=== PATIENT | male | born 1985 | race Caucasian/White ===

== ENCOUNTER 2017-01-23 17:21 | Emergency (ER) | payer SELFPAY ==
[2017-01-23 17:25] VITALS: BP 146/87; PULSE 95; TEMP 100.3; BMI 25.8
[2017-01-23] MEDS ORDERED: IBUPROFEN 400 MG TABLET (FP) PO ONE ×2 (17:55→18:37)
[2017-01-23] MEDS ORDERED: DEXAMETHASONE SOD PHOSPHATE 10 MG/1 ML VIAL IM ONE (18:37)
--- NOTE | 2017-01-23 18:37 | PDOC ---
History of Present Illness - General Chief Complaint: Sore Throat Stated Complaint: COLD SYMPTOMS Time Seen by Provider: 01/23/17 17:41 History Source: Patient - History of Present Illness Timing/Duration: reports: yesterday Severity: reports: moderate Associated Symptoms: reports: earache, sore throat. denies: cough, facial pain , fever/chills, headache, nasal congestion, nasal drainage Past History - Past Medical History Allergies/Adverse Reactions: Allergies Allergy/AdvReac Type Severity Reaction Status Date / Time No Known Allergies Allergy Verified 01/23/17 17:25 Home Medications: Ambulatory Orders Ibuprofen [Motrin -] 800 mg PO Q6H #30 tablet 01/23/17 Suicide Attempt (Hx): No Other medical history: PATIENT DENIES MEDICAL HISTORY - Psycho/Social/Smoking Cessation Hx Anxiety: No Suicidal Ideation: No Smoking History: Never smoked Have you smoked in the past 12 months: No Hx Alcohol Use: Yes (OCCASIONALLY) Drug/Substance Use Hx: No Substance Use Type: None Review of Systems - Review of Systems Constitutional: Yes: Chills, Fever HEENTM: Yes: Ear Pain, Throat Pain Respiratory: No: Cough *Physical Exam - Vital Signs Last Vital Signs Temp Pulse Resp BP Pulse Ox 100.3 F H 95 H 18 146/87 97 01/23/17 17:23 01/23/17 17:23 01/23/17 17:23 01/23/17 17:23 01/23/17 17:23 - Physical Exam General Appearance: Yes: Appropriately Dressed. No: Apparent Distress HEENT: positive: Normal Voice, Tonsillar Exudate (w/ enlargement, no uvular deviation) Neck: positive: Supple. negative: Lymphadenopathy (R), Lymphadenopathy (L) Respiratory/Chest: negative: Respiratory Distress Integumentary: positive: Dry, Warm Neurologic: positive: Fully Oriented, Alert, Normal Mood/Affect Medical Decision Making - Medical Decision Making 01/23/17 18:35 31 yo M, no sig hx, here w/ sore throat with dysphagia and right ear pain and fever since yesterday. No cough, rhinorrhea or bodyaches. No sick contacts. No tob use See exam Pharyngitis ?viral, r/o strep -pain meds -rapid strep 01/23/17 18:37 01/23/17 18:57 Strep +. Pt opted for bicillin. Dc w/ pain meds. *DC/Admit/Observation/Transfer Diagnosis at time of Disposition: Strep pharyngitis - Discharge Dispostion Disposition: HOME Condition at time of disposition: Improved - Prescriptions Prescriptions: Ibuprofen [Motrin -] 800 mg PO Q6H #30 tablet - Patient Instructions Printed Discharge Instructions: Strep Throat Additional Instructions: Usted tiene flakito infeccin de garganta llamada estreptococo. Se le administr flakito inyeccin de penicilina, que es todo lo que necesita para tratar carlos infecci n. [place] 800mg motrin cada 6 horas para el dolor. Motrin fue enviado a carlos farmacia. Joaquina sntomas tomarn tiempo para mejorar. Regreso a ED por empeoramiento de los sntomas Print Language: CHINESE
[2017-01-23] MEDS ORDERED: DEXAMETHASONE 4 MG TABLET (FP) ONE (18:47)
[2017-01-23] MEDS ORDERED: PENICILLIN G BENZATHINE 1,200,000 UNIT/2 ML PFS IM ONE (18:54)
[2017-01-23] MEDS ORDERED: PENICILLIN G BENZATHINE 2,400,000 UNIT/4 ML PFS ONE (19:07)
== END 2017-01-23 18:45 | disposition home or self-care (01) ==
LOC: JERFT 17:21
PROC: 3E023GC Introduction of Other Therapeutic Substance into Muscle, Percutaneous Approach (ICD-10-PCS; principal; 2017-01-23)
PROC: 3E02329 Introduction of Other Anti-infective into Muscle, Percutaneous Approach (ICD-10-PCS; 2017-01-23)
DX: J02.0 Streptococcal pharyngitis (principal)
CPT/HCPCS: 87070; 87430; 99281-25

== ENCOUNTER 2017-01-25 04:03 | Inpatient (IN) | payer OTHER ==
--- NOTE | 2017-01-25 04:29 | PDOC ---
History of Present Illness - General History Source: Patient Exam Limitations: No Limitations - History of Present Illness Initial Comments: 01/25/17 04:38 The patient is a 31 year old male with no significant past medical history who presents to the ED for worsening sore throat, hoarse voice, and trismus. Patient was seen 2 days ago for sore throat and found to have a positive strep. Patient was treated with a bicillin injection. He returns today because his sore throat has worsen. States he can somewhat tolerate his secretion. The patient denies fever, chills, cough, SOB, chest pain, and palpitations. The patient denies abdominal pain, nausea, vomiting, and diarrhea. Allergies: NKDA Social History: No alcohol, tobacco, or drug use reported. Past Surgical History: None reported PCP: None reported <Lalita Valdes - Last Filed: 01/25/17 04:38> - General History Source: Patient <ZenKirby mills - Last Filed: 01/25/17 19:32> - General Chief Complaint: Pain Stated Complaint: THROAT PAIN Time Seen by Provider: 01/25/17 04:29 Past History <Lalita Valdes - Last Filed: 01/25/17 04:38> - Past Medical History Suicide Attempt (Hx): No Other medical history: strep (+) - Psycho/Social/Smoking Cessation Hx Anxiety: No Suicidal Ideation: No Smoking History: Never smoked Have you smoked in the past 12 months: No Hx Alcohol Use: Yes (OCCASIONALLY) Drug/Substance Use Hx: No Substance Use Type: None <Kirby Orosco - Last Filed: 01/25/17 19:32> - Past Medical History Allergies/Adverse Reactions: Allergies Allergy/AdvReac Type Severity Reaction Status Date / Time No Known Allergies Allergy Verified 01/23/17 17:25 Home Medications: Ambulatory Orders NK [No Known Home Medication] 01/25/17 Review of Systems - Review of Systems Able to Perform ROS?: Yes Comments:: 01/25/17 04:38 CONSTITUTIONAL: Absent: fever, no chills, no fatigue EYES: Absent: visual changes ENT: +sore throat, trismus, hoarse voice Absent: ear pain CARDIOVASCULAR: Absent: chest pain, no palpitations RESPIRATORY: Absent: cough, no SOB GI: Absent: abdominal pain, no nausea, no vomiting, no constipation, no diarrhea GENITOURINARY: Absent: dysuria, no frequency, no hematuria MUSCULOSKELETAL: Absent: back pain, no arthralgia, no myalgia SKIN: Absent: rash NEURO: Absent: headache <Lalita Valdes - Last Filed: 01/25/17 04:38> *Physical Exam - Vital Signs Last Vital Signs Temp Pulse Resp BP Pulse Ox 100.5 F H 105 H 16 130/85 100 01/25/17 04:17 01/25/17 04:17 01/25/17 04:17 01/25/17 04:17 01/25/17 04:17 - Physical Exam Comments: 01/25/17 04:39 GENERAL: Well-appearing, well-nourished. No apparent distress. HEENT: Normocephalic, atraumatic. PERRL, EOM intact. Hoarse voice. Enlargement of the posterior pharynx, injected, no exudates CARDIOVASCULAR: Normal S1, S2. Regular rate and rhythm. PULMONARY: Clear to auscultation bilaterally. ABDOMEN: Soft, non-distended, non-tender. EXTREMITIES: Normal ROM in all four extremities. No gross deformities. SKIN: Warm, dry. No rash NEUROLOGICAL: No focal neurological deficits. <Lalita Valdes - Last Filed: 01/25/17 04:38> - Vital Signs Last Vital Signs Temp Pulse Resp BP Pulse Ox 100.5 F H 105 H 16 130/85 100 01/25/17 04:17 01/25/17 04:17 01/25/17 04:17 01/25/17 04:17 01/25/17 04:17 <Kirby Orosco - Last Filed: 01/25/17 19:32> ED Treatment Course - LABORATORY CBC & Chemistry Diagram: 01/25/17 05:14 01/25/17 05:14 <Kirby Orosco - Last Filed: 01/25/17 19:32> Medical Decision Making - Medical Decision Making 01/25/17 19:32 Dr. Orosco: The scribe's documentation has been prepared under my direction and personally reviewed by me in its entirery. I confirm that the note above accurately reflects all work, treatment, procedures, and medical decision making performed by me. <Kirby Orosco - Last Filed: 01/25/17 19:32> *DC/Admit/Observation/Transfer - Attestations Scribe Attestion: 01/25/17 04:39 Documentation prepared by Lalita Valdes, acting as medical laboratory technicians for Kirby Orosco MD/. <Lalita Valdes - Last Filed: 01/25/17 04:38> <Kirby Orosco - Last Filed: 01/25/17 19:32> Diagnosis at time of Disposition: Tonsillar abscess - Discharge Dispostion Condition at time of disposition: Stable
[2017-01-25] MEDS ORDERED: AMPICILLIN NA/SULBACTAM NA 3 GM in SODIUM CHLORIDE 100 ML IVPB ONE (04:30)
[2017-01-25] MEDS ORDERED: SODIUM CHLORIDE 1,000 ML IV STA (04:30)
[2017-01-25] MEDS ORDERED: KETOROLAC TROMETHAMINE 30 MG/1 ML VIAL IVPUSH ONE (04:31)
[2017-01-25] MEDS ORDERED: methylPREDNISolone NA SUCC 125 MG/2 ML VIAL IVPB ONE (04:31)
[2017-01-25] MEDS ORDERED: methylPREDNISolone NA SUCC 125 MG/2 ML VIAL ONE (05:06)
[2017-01-25] MEDS ORDERED: KETOROLAC TROMETHAMINE 30 MG/1 ML VIAL ONE (05:06)
[2017-01-25 05:53] LABS: MCH 29.4 pg (25.7-33.7)
[2017-01-25 06:00] LABS: BASOPHIL 0.2 % (0-2.0); EOSINOPHIL 0.1 % (0-4.5); MCHC 33.3 g/dl (32.0-35.9); MEAN CELL VOLUME 88.3 fl (80-96); NEUTROPHILS 75.2 % (42.8-82.8); PLATELET COUNT 248 K/MM3 (134-434); RDW 14.1 % (11.9-15.9); WHITE BLOOD COUNT 15.5 K/mm3 (4.0-10.0)
[2017-01-25 06:07] LABS: INR 1.14 (0.82-1.09); PROTHROMBIN TIME (PATIENT) 12.6 SEC (9.98-11.88)
[2017-01-25 06:17] LABS: ALBUMIN 3.5 g/dl (3.4-5.0); ALK PHOS 84 U/L (45-117); ANION GAP 8 (8-16); BILIRUBIN,TOTAL 0.4 mg/dL (0.2-1.0); CALCIUM 8.7 mg/dL (8.5-10.1); CO2 28 mmol/L (21-32); COCKROFT - GAULT 179.81; CREATININE 0.7 mg/dL (0.7-1.3); GLUCOSE,RANDOM 115 mg/dL (74-106); SGOT/AST 23 U/L (15-37); SGPT/ALT 45 U/L (12-78); TOT PROT 7.1 g/dl (6.4-8.2)
--- NOTE | 2017-01-25 08:50 | PDOC ---
*Physical Exam - Vital Signs Last Vital Signs Temp Pulse Resp BP Pulse Ox 98.3 F 80 18 115/80 96 01/25/17 07:35 01/25/17 07:35 01/25/17 07:35 01/25/17 07:35 01/25/17 07:35 ED Treatment Course - LABORATORY CBC & Chemistry Diagram: 01/25/17 05:14 01/25/17 05:14 - ADDITIONAL ORDERS Additional order review: Laboratory Results 01/25/17 01/25/17 01/25/17 05:14 05:14 05:14 INR 1.14 Sodium 140 Potassium 3.7 Chloride 104 Carbon Dioxide 28 D Anion Gap 8 BUN 16 D Creatinine 0.7 D Creat Clearance w eGFR > 60 Random Glucose 115 H D Calcium 8.7 Total Bilirubin 0.4 AST 23 ALT 45 Alkaline Phosphatase 84 Total Protein 7.1 Albumin 3.5 Blood Type O POSITIVE Antibody Screen Negative 01/25/17 05:14 RBC 4.65 MCV 88.3 MCHC 33.3 RDW 14.1 MPV 8.0 Neutrophils % 75.2 Lymphocytes % 14.5 D Monocytes % 10.0 D Eosinophils % 0.1 D Basophils % 0.2 D - Medications Given in the ED: ED Medications Discontinued Medications Generic Name Dose Route Start Last Admin Trade Name Freq PRN Reason Stop Dose Admin Sodium Chloride 1,000 mls @ 1,000 mls/hr 01/25/17 04:30 01/25/17 05:24 Normal Saline - IV 01/25/17 05:29 1,000 mls/hr ASDIR STA Administration Ampicillin Sodium/Sulbactam 100 mls @ 200 mls/hr 01/25/17 04:30 01/25/17 05:43 Sodium 3 gm/ Sodium Chloride IVPB 01/25/17 04:59 200 mls/hr ONCE ONE Administration Ketorolac Tromethamine 30 mg 01/25/17 04:31 01/25/17 05:23 Toradol Injection - IVPUSH 01/25/17 04:32 30 mg ONCE ONE Administration Methylprednisolone Sodium Succinate 125 mg 01/25/17 04:31 01/25/17 05:23 Solu-Medrol - IVPB 01/25/17 04:32 125 mg ONCE ONE Administration Medical Decision Making - Medical Decision Making 01/25/17 08:18 Pt signed out to me from Dr. Palma. 31y M hx of recent strep disagnosis 2 days ago , s/p bicillin presents to the ED with worsening sore throat, subjective fever and R ear pain, inability to eat /sweallow. The pt is pending a CT of the neck to r/o abscess. on my reassessment the pt appears in no distress but unable to open his mouth in the way to visualize, but he is protecting his airway secretions. 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 pt given zosyn will admit for furhter management and will notify dr. Carpio regarding admission for service admission 01/25/17 09:[address] Oliva will admit to med surg for further management of BENEFITS CONSULTING ANALYST 01/25/17 09:30 case jayde hurst agreed with admission for further management 01/25/17 12:[address] Buchanan (ENT) unable to drain any pus, but pt states after the CT, he spit up alot of pus, suspect it may have spontaneously drained. dr. buchanan recommends clinamycin. *DC/Admit/Observation/Transfer Diagnosis at time of Disposition: Tonsillar abscess - Discharge Dispostion Condition at time of disposition: Stable Admit: Yes
[2017-01-25 11:48] VITALS: BMI 25.8
[2017-01-25] MEDS ORDERED: CLINDAMYCIN 600MG PREMIX IVPB 50 ML IVPB ONE ×2 (12:23→12:38)
[2017-01-25] MEDS: SODIUM CHLORIDE 1,000 ML IV SCH ×2 (12:34→16:40)
--- NOTE | 2017-01-25 12:43 | CON.ENT ---
Consult Consult Specialty:: ENT Referred by:: ALEX Reason for Consultation:: BULK FILLER on CT scan - History of Present Illness Chief Complaint: throat pain History of Present Illness: 2 days of increasing sore throat had CT c/w right BULK FILLER. He notes that after CT he spit out a lot of PUS. - History Source History Provided By: Patient, Medical Record Limitations to Obtaining History: No Limitations - Past Surgical History Past Surgical History: Yes: None - Alcohol/Substance Use Hx Alcohol Use: No History of Substance Use: reports: None - Smoking History Smoking history: Never smoked Have you smoked in the past 12 months: No - Social History ADL: Independent History of Recent Travel: No Home Medications - Allergies Allergies/Adverse Reactions: Allergies Allergy/AdvReac Type Severity Reaction Status Date / Time No Known Allergies Allergy Verified 01/23/17 17:25 - Home Medications Home Medications: Ambulatory Orders NK [No Known Home Medication] 01/25/17 Physical Exam-ENT Vital Signs: Vital Signs Temperature 98 F 01/25/17 11:23 Pulse Rate 79 01/25/17 11:23 Respiratory Rate 18 01/25/17 11:23 Blood Pressure 112/70 01/25/17 11:23 O2 Sat by Pulse Oximetry (%) 96 01/25/17 11:23 Constitutional: Yes: Well Nourished, No Distress Head: Yes: WNL, Atraumatic Face: Yes: WNL, Symmetrical Eyes: Yes: WNL Nose: Yes: WNL Nasal Passage: Yes: WNL Oral/Pharynx: Yes: Other (Right peritonsillar edmea, erythema, NO significant trismus) Outer Ear: Yes: WNL Neck: Yes: WNL Imaging - Results Cat Scan: Report Reviewed, Image Reviewed (Right sea captain) Problem List - Problems (1) Tonsillar abscess Assessment/Plan: I aspirated the right BULK FILLER area, no pus, but blood sent for cx. He appears to have self decompressed the abscess. OK to d/c home on po clindamycin 300 q6 for 10 days and f/u in office next week Code(s): J36 - PERITONSILLAR ABSCESS
[2017-01-25] MEDS ORDERED: AMPICILLIN NA/SULBACTAM NA 100 ML IVPB SCH (12:45)
[2017-01-25] MEDS ORDERED: ACETAMINOPHEN 325 MG TABLET (FP) PO PRN (13:41)
--- NOTE | 2017-01-25 13:50 | HP ---
Admitting History and Physical - Admission Chief Complaint: sore throat History of Present Illness: 31 year old male with no significant pmhx presents with 1 week hx of sore throat , fever, malaise. Came to ED on Sunday, told he had strep throat and given PCN. Symptoms persisted and he now returns with worsening sore throat, fevers and right ear pain, difficulty swallowing and hoarse voice. No stridor, drooling , trismus. No neck pain/stiffness. History Source: Patient Limitations to Obtaining History: No Limitations - Past Surgical History Past Surgical History: Yes: None - Smoking History Smoking history: Never smoked Have you smoked in the past 12 months: No - Alcohol/Substance Use Hx Alcohol Use: No History of Substance Use: reports: None - Social History Usual Living Arrangement: Yes: With Spouse ADL: Independent Occupation: unemployed History of Recent Travel: No Home Medications - Allergies Allergies/Adverse Reactions: Allergies Allergy/AdvReac Type Severity Reaction Status Date / Time No Known Allergies Allergy Verified 01/23/17 17:25 - Home Medications Home Medications: Ambulatory Orders NK [No Known Home Medication] 01/25/17 Family Disease History - Family Disease History Family History: Denies Review of Systems - Review of Systems Constitutional: reports: Fever, Loss of Appetite, Malaise Eyes: reports: No Symptoms HENT: reports: Difficult Swallowing, Ear Pain, Throat Pain Neck: reports: No Symptoms Cardiovascular: reports: No Symptoms Respiratory: reports: No Symptoms Gastrointestinal: reports: No Symptoms Genitourinary: reports: No Symptoms Breasts: reports: No Symptoms Reported Musculoskeletal: reports: No Symptoms Integumentary: reports: No Symptoms Neurological: reports: No Symptoms Endocrine: reports: No Symptoms Hematology/Lymphatic: reports: No Symptoms Psychiatric: reports: No Symptoms Physical Examination Vital Signs: Vital Signs Temperature 98 F 01/25/17 11:23 Pulse Rate 79 01/25/17 11:23 Respiratory Rate 18 01/25/17 11:23 Blood Pressure 112/70 01/25/17 11:23 O2 Sat by Pulse Oximetry (%) 96 01/25/17 11:23 Constitutional: Yes: Well Nourished, No Distress, Calm Eyes: Yes: WNL, Conjunctiva Clear, EOM Intact HENT: Yes: Atraumatic, Normocephalic, Hoarseness, Pharyngeal Erythema. No: Drooling, Nasal Congestion, Rhinnorhea, Tonsillar Exudate Neck: Yes: WNL, Supple, Trachea Midline, Lymphadenopathy. No: Decreased ROM, Rigid, Tenderness, Thyromegaly Cardiovascular: Yes: WNL, Regular Rate and Rhythm Respiratory: Yes: WNL, Regular, CTA Bilaterally Gastrointestinal: Yes: WNL, Normal Bowel Sounds, Soft Musculoskeletal: Yes: WNL Extremities: Yes: WNL Edema: No Peripheral Pulses WNL: Yes Labs: Laboratory Tests 01/25/17 01/25/17 01/25/17 05:14 05:14 05:14 WBC 15.5 H RBC 4.65 Hgb 13.7 Hct 41.0 MCV 88.3 MCHC 33.3 RDW 14.1 Plt Count 248 MPV 8.0 Neutrophils % 75.2 Lymphocytes % 14.5 D Monocytes % 10.0 D Eosinophils % 0.1 D Basophils % 0.2 D INR 1.14 Sodium Potassium Chloride Carbon Dioxide Anion Gap BUN Creatinine Creat Clearance w eGFR Random Glucose Calcium Total Bilirubin AST ALT Alkaline Phosphatase Total Protein Albumin Blood Type O POSITIVE Antibody Screen Negative 01/25/17 05:14 WBC RBC Hgb Hct MCV MCHC RDW Plt Count MPV Neutrophils % Lymphocytes % Monocytes % Eosinophils % Basophils % INR Sodium 140 Potassium 3.7 Chloride 104 Carbon Dioxide 28 D Anion Gap 8 BUN 16 D Creatinine 0.7 D Creat Clearance w eGFR > 60 Random Glucose 115 H D Calcium 8.7 Total Bilirubin 0.4 AST 23 ALT 45 Alkaline Phosphatase 84 Total Protein 7.1 Albumin 3.5 Blood Type Antibody Screen Imaging - Results Chest X-ray: Report Reviewed, Image Reviewed Cat Scan: Report Reviewed Problem List - Problems (1) Tonsillar abscess Code(s): J36 - PERITONSILLAR ABSCESS (2) Strep pharyngitis Code(s): J02.0 - STREPTOCOCCAL PHARYNGITIS Assessment/Plan 31 year old male 1) Peritonsillar abscess s/p aspiration in ED -clindamycin -f/u cultures -analgesics -monitor overnight -as per ENT, can d/c with oral clinda and o/p followup -patient HD stable for gen med floor
[2017-01-25] MEDS: LACTOBACILLUS ACIDOPHILUS 1 EACH TAB (FP) PO SCH ×2 (13:59→22:07)
[2017-01-25] MEDS: CLINDAMYCIN 600MG PREMIX IVPB 50 ML IVPB SCH (18:31)
[2017-01-25] MEDS: HEPARIN NA (PORCINE) 5,000 UNITS/ML 1ML VIAL SQ SCH (22:07)
[2017-01-26] MEDS: CLINDAMYCIN 600MG PREMIX IVPB 50 ML IVPB SCH ×2 (01:40→10:13)
[2017-01-26] MEDS: LACTOBACILLUS ACIDOPHILUS 1 EACH TAB (FP) PO SCH ×2 (06:42→14:55)
[2017-01-26 07:32] LABS: BASOPHIL 0.3 % (0-2.0); EOSINOPHIL 0.1 % (0-4.5); MCH 30.1 pg (25.7-33.7); MEAN CELL VOLUME 88.5 fl (80-96); MEAN PLT VOLUME 7.6 fl (7.5-11.1); NEUTROPHILS 63.3 % (42.8-82.8); PLATELET COUNT 244 K/MM3 (134-434); RDW 14.2 % (11.9-15.9); WHITE BLOOD COUNT 13.1 K/mm3 (4.0-10.0)
[2017-01-26 08:01] LABS: ANION GAP 8 (8-16); CALCIUM 8.3 mg/dL (8.5-10.1); CO2 26 mmol/L (21-32); CREATININE 0.6 mg/dL (0.7-1.3); GLUCOSE,RANDOM 93 mg/dL (74-106)
[2017-01-26] MEDS: HEPARIN NA (PORCINE) 5,000 UNITS/ML 1ML VIAL SQ SCH (10:13)
[2017-01-26] MEDS: SODIUM CHLORIDE 1,000 ML IV SCH (14:55)
[2017-01-26 16:28] VITALS: BP 112/63; PULSE 79; TEMP 97.5
== END 2017-01-26 16:44 | disposition home or self-care (01) | DRG 97 ==
LOC: JER 04:03 → JERBED 09:26 → INTOOBSV 12:22 → OBSVTOIN 12:22 → J8W 21:32
PROVIDERS: ADMIT Internal Medicine; ATTEND Internal Medicine
PROC: 0C9P3ZZ Drainage of Tonsils, Percutaneous Approach (ICD-10-PCS; principal; 2017-01-25)
DX: J36 Peritonsillar abscess (principal); J02.0 Streptococcal pharyngitis
CPT/HCPCS: 36415; 70491-TC; 80048; 80053; 85025; 85610; 86850; 86900; 86901; 87040; 87070; 87205; 99284-25; G0378; J1644

== ENCOUNTER 2017-03-07 19:51 | Emergency (ER) | payer OTHER ==
[2017-03-07 20:01] VITALS: BMI 28.3
--- NOTE | 2017-03-07 21:00 | PDOC ---
History of Present Illness - History of Present Illness Initial Comments: 03/07/17 21:13 Patient is a 31 year old male with no significant medical hx who is presenting to the ED with melena and abdominal distention for two days. Patient complains of three episodes of "black red" stools with some feeling of abdominal distention. The patient admits to heavily drinking all day yesterday; he states that he drinks every day. Denies fever, chills, abdominal pain, nausea, or vomiting. <Mary Bell - Last Filed: 03/07/17 21:12> <Prosper Arias - Last Filed: 03/08/17 00:27> - General Chief Complaint: Rectal Bleed Stated Complaint: ABD PAIN Time Seen by Provider: 03/07/17 20:53 Past History <Mary Bell - Last Filed: 03/07/17 21:12> - Past Medical History Suicide Attempt (Hx): No - Psycho/Social/Smoking Cessation Hx Anxiety: No Suicidal Ideation: No Smoking History: Never smoked Have you smoked in the past 12 months: No Hx Alcohol Use: Yes Drug/Substance Use Hx: No Substance Use Type: None Hx Substance Use Treatment: No <Prosper Arias - Last Filed: 03/08/17 00:27> - Past Medical History Allergies/Adverse Reactions: Allergies Allergy/AdvReac Type Severity Reaction Status Date / Time No Known Allergies Allergy Verified 03/07/17 23:06 Home Medications: Ambulatory Orders NK [No Known Home Medication] 03/07/17 Review of Systems - Review of Systems Comments:: 03/07/17 21:17 CONSTITUTIONAL: No fever, no chills, no fatigue EYES: No visual changes ENT: No ear pain, no sore throat CARDIOVASCULAR: No chest pain, no palpitations RESPIRATORY: No cough, no SOB GI: Melena, abdominal distention. No abdominal pain, no nausea, no vomiting, no constipation, no diarrhea GENITOURINARY: No dysuria, no frequency, no hematuria MUSKULOSKELETAL: No backpain, no joint pain, no myalgias SKIN: No rash NEURO: No headache <Mary Bell - Last Filed: 03/07/17 21:12> *Physical Exam - Vital Signs Last Vital Signs Temp Pulse Resp BP Pulse Ox 98.7 F 115 H 18 148/95 99 07/26/17 19:55 03/07/17 19:55 03/07/17 19:55 03/07/17 19:55 03/07/17 19:55 - Physical Exam Comments: 03/07/17 21:18 CONSTITUTIONAL: Well-appearing; well-nourished; in no apparent distress HEAD: Normocephalic; atraumatic EYES: PERRL; EOM intact ENMT: External appears normal; normal oropharynx NECK: Supple; non-tender; no cervical lymphadenopathy CARD: Normal S1, S2; no murmurs, rubs, or gallops RESP: Normal chest excursion with respiration; breath sounds clear and equal bilaterally; no wheezes, rhonchi, or rales ABD: Soft, non-distended; non-tender; no palpable organomegaly, no palpable hernias EXT: Normal ROM in all four extremities; non-tender to palpation; distal pulses intact SKIN: Warm, dry, no rash NEURO: No focal neurological deficiencies RECTAL: No external lesions; good rectal tone; minimal amount of stool in the rectal vault <Mary Bell - Last Filed: 03/07/17 21:12> - Vital Signs Last Vital Signs Temp Pulse Resp BP Pulse Ox 98.7 F 115 H 18 148/95 99 03/07/17 19:55 03/07/17 19:55 03/07/17 19:55 03/07/17 19:55 03/07/17 19:55 <Prosper Arias - Last Filed: 03/08/17 00:27> ED Treatment Course - LABORATORY CBC & Chemistry Diagram: 03/07/17 21:50 03/07/17 21:50 <Prosper Arias - Last Filed: 03/08/17 00:27> Medical Decision Making - Medical Decision Making 03/08/17 00:23 31-year-old male with history of alcohol abuse presents to the ER with abdominal distention several episodes of dark tarry stools after several days of binge drinking. In the ER, patient is awake and alert, afebrile, nontoxic appearing, with normal stable vital signs. Serial abdominal exams reveal no focal tenderness, there is no guarding or rebound. Bowel sounds are normal in all 4 quadrants. Rectal exam reveals no external lesions, light brown stool is noted in the rectal vault. Noted to be guaiac negative. CBC is within normal limit. CMP reveals minimally elevated ALT and AST likely related to alcoholic liver disease. Patient has received thiamine, folic acid, H2 blockers as well as IV fluids. I do not suspect any further active bleeding at this time. Patient advised to stop binge drinking and follow-up with medical clinic for further evaluation and treatment. Will discharge with H2 blockers. <Prosper Arias - Last Filed: 03/08/17 00:27> *DC/Admit/Observation/Transfer - Attestations Scribe Attestion: 03/07/17 21:18 Documentation prepared by Mary Bell, acting as medical billing representative for Prosper Arias MD. <Mary Bell - Last Filed: 03/07/17 21:12> - Attestations Physician Attestion: 03/08/17 00:22 The documentation was prepared by the scribe under my direct supervision. I have reviewed the documentation which correctly represents the findings, medical decision-making and critical action taken by me. <Prosper Arias - Last Filed: 03/08/17 00:27> Diagnosis at time of Disposition: Rectal hemorrhage, Alcohol abuse - Discharge Dispostion Disposition: HOME Condition at time of disposition: Stable - Referrals Referrals: [facility] [Provider Group] - Patient Instructions Printed Discharge Instructions: DI for Rectal Bleeding, DI for Alcohol Abuse Print Language: SAMI
[2017-03-07] MEDS ORDERED: PANTOPRAZOLE SODIUM 40 MG in SODIUM CHLORIDE 100 ML IVPB ONE (21:10)
[2017-03-07] MEDS ORDERED: THIAMINE HCL 200 MG/2 ML VIAL IVPB ONE (21:10)
[2017-03-07] MEDS ORDERED: SODIUM CHLORIDE 500 ML IV STA (21:10)
[2017-03-07] MEDS ORDERED: FOLIC ACID 1 MG TABLET (FP) PO ONE (21:11)
[2017-03-07] MEDS ORDERED: THIAMINE HCL 200 MG/2 ML VIAL ONE (21:55)
[2017-03-07] MEDS ORDERED: PANTOPRAZOLE SODIUM 100 ML IVPB ONE (21:56)
[2017-03-07] MEDS ORDERED: FOLIC ACID 1 MG TABLET (FP) ONE (21:56)
[2017-03-07 22:06] LABS: BASOPHIL 0.4 % (0-2.0); MCH 30.4 pg (25.7-33.7); MCHC 34.3 g/dl (32.0-35.9); MEAN CELL VOLUME 88.7 fl (80-96); MEAN PLT VOLUME 8.1 fl (7.5-11.1); NEUTROPHILS 65.2 % (42.8-82.8); PLATELET COUNT 246 K/MM3 (134-434); RDW 14.3 % (11.9-15.9); WHITE BLOOD COUNT 10.3 K/mm3 (4.0-10.0)
[2017-03-07 22:18] LABS: INR 1.05 (0.82-1.09); PROTHROMBIN TIME (PATIENT) 11.6 SEC (9.98-11.88)
[2017-03-07 22:32] LABS: ALBUMIN 3.9 g/dl (3.4-5.0); ALK PHOS 114 U/L (45-117); ANION GAP 12 (8-16); BILIRUBIN,TOTAL 0.6 mg/dL (0.2-1.0); CALCIUM 8.8 mg/dL (8.5-10.1); CO2 26 mmol/L (21-32); CREATININE 0.8 mg/dL (0.7-1.3); GLUCOSE,RANDOM 100 mg/dL (74-106); SGPT/ALT 91 U/L (12-78); TOT PROT 7.4 g/dl (6.4-8.2)
[2017-03-07 22:35] LABS: SGOT/AST 97 U/L (15-37)
[2017-03-07] MEDS ORDERED: POTASSIUM CHLORIDE TABS 20 MEQ TABLET.ER (FP) PO ONE (23:48)
[2017-03-08 00:47] VITALS: BP 138/87; PULSE 90; TEMP 98.3
== END 2017-03-08 00:55 | disposition home or self-care (01) ==
LOC: JER 19:51
PROC: 3E033GC Introduction of Other Therapeutic Substance into Peripheral Vein, Percutaneous Approach (ICD-10-PCS; principal; 2017-03-07)
PROC: 3E033GC Introduction of Other Therapeutic Substance into Peripheral Vein, Percutaneous Approach (ICD-10-PCS; 2017-03-07)
DX: K62.5 Hemorrhage of anus and rectum (principal); F10.10 Alcohol abuse, uncomplicated
CPT/HCPCS: 36415; 80053; 82272; 85025; 85610; 86850; 86900; 86901; 99283-25

== ENCOUNTER 2017-11-03 19:49 | Emergency (ER) | payer OTHER ==
[2017-11-03 19:57] VITALS: BP 110/63; PULSE 97; TEMP 98.1; BMI 28.0
--- NOTE | 2017-11-03 21:28 | PDOC ---
History of Present Illness - General Chief Complaint: Pain Stated Complaint: ear,throat and back pain Time Seen by Provider: 11/03/17 21:00 History Source: Patient Exam Limitations: No Limitations - History of Present Illness Initial Comments: CHIEF COMPLAINT: 32 y/o afebrile male c/o 2 weeks of left ear pain and 4 days of left low back pain. 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 He also remembers no trauma to his ear. He denies f/c, n/v/d, discharge from ear, radiation of back pain, trauma to back. Yesterday he took one dose of advil. Vital signs on arrival are within normal limits. REVIEW OF SYSTEMS: GENERAL/CONSTITUTIONAL: No fever/chills. No weakness. No weight change. HEAD, EYES, EARS, NOSE AND THROAT: +left ear pain. No change in vision. No ear discharge. No sore throat. CARDIOVASCULAR: No chest pain or shortness of breath. RESPIRATORY: No cough, wheezing, or hemoptysis. GASTROINTESTINAL: No abd pain, nausea, vomiting, diarrhea. GENITOURINARY: No dysuria, frequency, or change in urination. MUSCULOSKELETAL: +left low back pain. No joint or muscle swelling or pain. No neck pain. SKIN: No rash or easy bruising. NEUROLOGIC: No headache, vertigo, loss of consciousness, or loss of sensation. PHYSICAL EXAM: GENERAL: The patient is awake, alert, and fully oriented, in no acute distress. He is very well appearing, ambulatory, in NAD or obvious discomfort. HEAD: Normal with no signs of trauma. ENT: Pupils equal, round and reactive to light, extraocular movements intact, sclera anicteric, conjunctiva clear. TMs normal b/l. Left canal with abrasion and erythema on inferior wall. LUNGS: Clear to auscultation bilaterally. Normal excursion. No respiratory distress or use of accessory muscles. CV: RRR, S1/S2, no MRG. Cap refill < 2 sec. ABDOMEN: Soft, non-distended, non-tender even to deep palpation, no hepatomegaly or splenomegaly, no masses. BACK: Reproducible pain with palpation of left lumbar paravertebral muscles. No midline lumbar spine TTP or step offs. No CVA TTP b/l. EXTREMITIES: Normal range of motion, no edema. NEUROLOGICAL: Normal speech, normal gait. CN II-XII grossly intact. PSYCH: Normal mood, normal affect. SKIN: Warm, dry, normal turgor, no rashes or lesions noted. Past History - Past Medical History Allergies/Adverse Reactions: Allergies Allergy/AdvReac Type Severity Reaction Status Date / Time No Known Allergies Allergy Verified 11/03/17 19:57 Home Medications: Ambulatory Orders Ibuprofen 600 mg PO TID PRN #20 tablet MDD 3 11/03/17 Neomycin/Polymyxn/Hc [Cortisporin Otic Suspenstion -] 5 drop OS Q6HPO #100 drops 11/03/17 COPD: No Other medical history: Pt denies - Suicide/Smoking/Psychosocial Hx Smoking History: Never smoked Have you smoked in the past 12 months: No Information on smoking cessation initiated: No Hx Alcohol Use: No Drug/Substance Use Hx: No Substance Use Type: None Hx Substance Use Treatment: No *Physical Exam - Vital Signs Last Vital Signs Temp Pulse Resp BP Pulse Ox 98.1 F 97 H 16 110/63 99 11/03/17 19:54 11/03/17 19:54 11/03/17 19:54 11/03/17 19:54 11/03/17 19:54 Medical Decision Making - Medical Decision Making A/P: 32 y/o male with abrasion in left ear and musculoskeletal back pain. Will discharge with rx for ibuprofen and corticosporin drops. INstructed him to f/u with his doctor, avoid heavy lifting and return to the ER with any worsening or concerning symptoms. The patient verbalizes understanding of all instructions, has no further questions and is awaiting discharge. *DC/Admit/Observation/Transfer Diagnosis at time of Disposition: Musculoskeletal back pain Ear canal abrasion Qualifiers: Encounter type: initial encounter Laterality: left Qualified Code(s): S00.412A - Abrasion of left ear, initial encounter - Discharge Dispostion Disposition: HOME Condition at time of disposition: Good - Referrals - Patient Instructions Printed Discharge Instructions: DI for Ear Pain-Adult, DI for Low Back Pain Additional Instructions: Discharge Instructions: -You have a cut on the inside of your left ear; a prescription for ear drops was sent to your pharmacy -You have a muscle strain in your low back; a prescription for pain medication was sent to your pharmacy -Apply heating pad and stretch your back 3 times per day -Avoid heavy lifting until your back feels better -Follow up with your doctor within 1 week -Return to the ER with any worsening or concerning symptoms. Instrucciones de descarga: -Tienes un al en el interior de tu oreja izquierda; flakito receta para gotas para los odos fue enviada a carlos farmacia -Tienes flakito tensin muscular en la espalda baja. flakito receta para medicamentos para el dolor fue enviada a carlos farmacia -Aplicar la almohadilla trmica y estirar la espalda 3 veces por da -Evite levantar objetos pesados hasta que carlos espalda se sienta mejor -Siga con carlos doctor dentro de 1 semana -Volver a la ari de emergencias con cualquier empeoramiento o sntomas. Print Language: CROATIAN - Post Discharge Activity
== END 2017-11-03 21:45 | disposition home or self-care (01) ==
LOC: JER 19:49
DX: M54.5 Low back pain (principal); S00.412A Abrasion of left ear, initial encounter; X58.XXXA Exposure to other specified factors, initial encounter; Y93.89 Activity, other specified; Y92.038 Other place in apartment as the place of occurrence of the external cause; Y99.8 Other external cause status
CPT/HCPCS: 99283-25

== ENCOUNTER 2019-04-02 16:18 | Emergency (ER) | payer OTHER ==
[2019-04-02] MEDS ORDERED: METHOCARBAMOL 500 MG TABLET PO ONE (16:24)
[2019-04-02] MEDS ORDERED: KETOROLAC TROMETHAMINE 30 MG/1 ML VIAL IM ONE (16:24)
--- NOTE | 2019-04-02 16:24 | PDOC ---
Rapid Medical Evaluation Chief Complaint: Chronic pain Time Seen by Provider: 04/02/19 16:20 Medical Evaluation: Allergies Allergy/AdvReac Type Severity Reaction Status Date / Time No Known Allergies Allergy Verified 11/03/17 19:57 04/02/19 16:21 +I have performed a brief in-person evaluation of this patient. The patient presents with a chief complaint of: h/o sciatica present with complains of left lower back pain radiating down posterior left thigh. Denies numbness or tingling sensation. Denies recent trauma or injury. Denies saddle paresthesia or incontinence. report pain started 5 days ago after heavy lifting Pertinent physical exam findings: mild TTP over LT lower lumbar area I have ordered the following: Toradol. robaxin The patient will proceed to the ED for further evaluation. Discharge Disposition - Diagnosis Musculoskeletal back pain Sciatica Qualifiers: Laterality: left Qualified Code(s): M54.32 - Sciatica, left side - Discharge Dispostion Condition at time of disposition: Stable - Referrals - Patient Instructions - Post Discharge Activity
[2019-04-02 16:33] VITALS: BP 132/89; PULSE 96; TEMP 98.2; BMI 24.3
[2019-04-02] MEDS ORDERED: METHOCARBAMOL 500 MG TABLET ONE (16:50)
[2019-04-02] MEDS ORDERED: KETOROLAC TROMETHAMINE 30 MG/1 ML VIAL ONE (16:50)
--- NOTE | 2019-04-02 16:58 | PDOC ---
History of Present Illness - General Chief Complaint: Chronic pain Stated Complaint: LEFT LEG PAIN Time Seen by Provider: 04/02/19 16:20 - History of Present Illness Initial Comments: 04/02/19 16:57 33-year-old male with lower back pain and posterior lateral left leg radicular symptoms without loss of bowel or bladder function or saddle paresthesia 6 days Past History - Past Medical History Allergies/Adverse Reactions: Allergies Allergy/AdvReac Type Severity Reaction Status Date / Time No Known Allergies Allergy Verified 04/02/19 16:23 Home Medications: Ambulatory Orders Ibuprofen 600 mg PO TID PRN #20 tablet MDD 3 11/03/17 Neomycin/Polymyxn/Hc [Cortisporin Otic Suspenstion -] 5 drop OS Q6HPO #100 drops 11/03/17 Cyclobenzaprine HCl [Flexeril 10 mg] 10 mg PO HS PRN #10 tablet 04/02/19 Methylprednisolone [Medrol Dose Tony] 4 mg PO ASDIR #21 tablet 04/02/19 COPD: No Other medical history: sciatica - Suicide/Smoking/Psychosocial Hx Smoking History: Never smoked Have you smoked in the past 12 months: No Information on smoking cessation initiated: No Hx Alcohol Use: No Drug/Substance Use Hx: No Substance Use Type: None Hx Substance Use Treatment: No Review of Systems - Review of Systems Constitutional: No: Fever Musculoskeletal: Yes: Back Pain *Physical Exam - Vital Signs Last Vital Signs Temp Pulse Resp BP Pulse Ox 98.2 F 96 H 19 132/89 99 04/02/19 16:20 04/02/19 16:20 04/02/19 16:20 04/02/19 16:20 04/02/19 16:20 - Physical Exam Comments: 04/02/19 16:57 Lumbar spine skin color and temperature are normal. There isdecreased range of motion. 5 out of 5 strength in bilateral lower extremities.Straight leg raise test is negative bilaterally. Thighs and calves are soft and nontender. There are no gross sensory motor deficits. Neurovascularly intact. Medical Decision Making - Medical Decision Making 04/02/19 16:56 Lumbar radiculopathy without gross sensory motor deficits Medrol Dosepak follow- up with *DC/Admit/Observation/Transfer Diagnosis at time of Disposition: Musculoskeletal back pain Sciatica Qualifiers: Laterality: left Qualified Code(s): M54.32 - Sciatica, left side - Discharge Dispostion Disposition: HOME Condition at time of disposition: Stable Decision to Admit order: No - Prescriptions Prescriptions: Cyclobenzaprine HCl [Flexeril 10 mg] 10 mg PO HS PRN #10 tablet PRN Reason: Muscle Spasms Methylprednisolone [Medrol Dose Tony] 4 mg PO ASDIR #21 tablet - Referrals Referrals: Paulo Carmona MD, [facility] [Staff Physician] - - Patient Instructions Printed Discharge Instructions: Lumbar Radiculopathy, DI for Lumbar Radiculopathy Additional Instructions: Please take the steroid pack and muscle relaxers as directed. Follow-up with spine surgery in 1-2 days without fail for further evaluation and treatment options and return to the emergency room should symptoms worsen. - Post Discharge Activity
== END 2019-04-02 17:12 | disposition home or self-care (01) ==
LOC: JERFT 16:18
PROC: 3E0233Z Introduction of Anti-inflammatory into Muscle, Percutaneous Approach (ICD-10-PCS; principal; 2019-04-02)
DX: M54.32 Sciatica, left side (principal); M79.18 Myalgia, other site
CPT/HCPCS: 96372; 99281-25

== ENCOUNTER 2022-02-19 23:42 | Observation (INO) | payer OTHER ==
[2022-02-20] MEDS ORDERED: diazePAM 5 MG TABLET PO ONE (01:13)
[2022-02-20] MEDS ORDERED: diazePAM 5 MG TABLET ONE (01:14)
[2022-02-20] MEDS ORDERED: DEXAMETHASONE SOD PHOSPHATE 20 MG/5 ML VIAL IVPB ONE (03:43)
[2022-02-20] MEDS ORDERED: morphine SULFATE 4 MG/ML VIAL IVPUSH ONE (03:43)
[2022-02-20 04:11] LABS: BASO % 0.9 % (0-2.0); EOS % 4.2 % (0-4.5); HEMATOCRIT 37.4 % (35.4-49); LYMPH % 37.6 % (8-40); MCH 32.2 pg (25.7-33.7); MCHC 34.6 g/dl (32.0-35.9); MEAN CELL VOLUME 93.1 fl (80-96); MEAN PLT VOLUME 7.6 fl (7.5-11.1); MONO % 12.8 % (3.8-10.2); NEUT % 44.5 % (42.8-82.8); PLATELET COUNT 173 10^3/uL (134-434); RBC 4.02 M/mm3 (4.00-5.60); RDW 14.5 % (11.9-15.9)
[2022-02-20] MEDS ORDERED: DEXAMETHASONE SOD PHOSPHATE 10 MG/1 ML VIAL ONE (04:16)
[2022-02-20] MEDS ORDERED: morphine SULFATE 4 MG/ML VIAL ONE (04:16)
[2022-02-20 04:31] LABS: CALCIUM 8.3 mg/dL (8.5-10.1)
[2022-02-20 04:33] LABS: ALBUMIN 3.9 g/dl (3.4-5.0); BLOOD UREA NITROGEN 20.1 mg/dL (7-18)
[2022-02-20 04:38] LABS: BILIRUBIN,TOTAL 0.4 mg/dL (0.2-1)
[2022-02-20 05:53] LABS: ERYTHROCYTE SEDIMENTATION RATE 6 mm/hr (0-10)
[2022-02-20] MEDS: morphine SULFATE 4 MG/ML VIAL IVPUSH PRN (20:59)
[2022-02-20 22:36] VITALS: BMI 26.4
[2022-02-21] MEDS: morphine SULFATE 4 MG/ML VIAL IVPUSH PRN (08:35)
[2022-02-21] MEDS ORDERED: ENOXAPARIN NA (PORCINE) 40 MG/0.4 ML DISP.SYRIN SQ SCH (10:00)
[2022-02-21] MEDS ORDERED: LIDOCAINE 5% TOPICAL PATCH TP SCH (10:15)
[2022-02-21] MEDS ORDERED: oxyCODONE HCL 5 MG TABLET PO PRN ×2 (10:16)
[2022-02-21] MEDS ORDERED: morphine SULFATE 4 MG/ML VIAL IVPUSH PRN (10:18)
[2022-02-21 10:54] LABS: HEMATOCRIT 38.8 % (35.4-49); HEMOGLOBIN 13.2 GM/dL (11.7-16.9); MCH 31.9 pg (25.7-33.7); MEAN CELL VOLUME 93.7 fl (80-96); MEAN PLT VOLUME 8.2 fl (7.5-11.1); PLATELET COUNT 184 10^3/uL (134-434); RBC 4.14 M/mm3 (4.00-5.60); RDW 14.5 % (11.9-15.9); WHITE BLOOD COUNT 5.1 K/mm3 (4.0-10.0)
[2022-02-21 11:22] LABS: ALBUMIN 3.3 g/dl (3.4-5.0); CALCIUM 8.7 mg/dL (8.5-10.1)
[2022-02-21 11:26] LABS: BILIRUBIN,TOTAL 0.6 mg/dL (0.2-1); TOT PROT 6.4 g/dl (6.4-8.2)
[2022-02-21 11:32] LABS: CREATININE 0.5 mg/dL (0.55-1.3)
[2022-02-21] MEDS ORDERED: ACETAMINOPHEN 500 MG TABLET (FP) PO SCH (12:00)
[2022-02-21 12:16] VITALS: BP 132/77; PULSE 80; TEMP 98.3
[2022-02-21] MEDS ORDERED: GABAPENTIN 300 MG CAPSULE PO SCH (14:00)
[2022-02-21] MEDS ORDERED: LIDOCAINE PATCH REMOVAL MC SCH (22:00)
[2022-02-21] MEDS ORDERED: DOCUSATE SODIUM 100 MG CAPSULE (FP) PO SCH (22:00)
== END 2022-02-21 12:36 | disposition home or self-care (01) ==
LOC: JER 23:42 → JERBED 02-20 07:59 → J6S 02-20 20:19
PROVIDERS: ADMIT Internal Medicine; ATTEND Nurse Practitioner Acute Care
PROC: 3E023GC Introduction of Other Therapeutic Substance into Muscle, Percutaneous Approach (ICD-10-PCS; principal; 2022-02-20)
PROC: 3E033GC Introduction of Other Therapeutic Substance into Peripheral Vein, Percutaneous Approach (ICD-10-PCS; 2022-02-20)
PROC: 3E033NZ Introduction of Analgesics, Hypnotics, Sedatives into Peripheral Vein, Percutaneous Approach (ICD-10-PCS; 2022-02-20)
DX: M43.10 Spondylolisthesis, site unspecified (principal); M54.10 Radiculopathy, site unspecified; R94.5 Abnormal results of liver function studies; M54.9 Dorsalgia, unspecified; M62.81 Muscle weakness (generalized); Z29.8 Encounter for other specified prophylactic measures
CPT/HCPCS: 36415; 72131-TC; 72148-TC; 74176-TC; 76705-TC; 80053; 85025; 85027; 85651; 86140; 93005; 93010; 96372; 96374; 96375; 96376; 97116-GP; 97162-GP; 99285-25; C9803-CS; G0378; U0003; U0005